=== PATIENT | male | born 1995 | race American Indian/Alaskan Native ===

== ENCOUNTER 2018-11-21 14:57 | Emergency (ER) | payer SELFPAY ==
--- NOTE | 2018-11-21 15:25 | Emergency Department Report ---
Blank Doc - Documentation Documentation: patient report allergic reaction with tongue swelling. Started 1430 todat after eating [place] food. No no cough. Feels clinching tightness Mouth- normal exam without tongue swelling. Uvula midline Lungs- CTAb, No stridor Neck Nl exam BP elevated A/P pt screened by provider and sent back to fast track to be seen
== END 2018-11-21 16:50 | disposition home or self-care (01) ==
LOC: ED 14:57